=== PATIENT | male | born 1950 | race Caucasian/White ===

== ENCOUNTER 2018-08-07 18:55 | Emergency (ER) | payer SELFPAY ==
[2018-08-07] MEDS ORDERED: Sodium Chloride 0.9% 10 ML Syringe FLUSH PRN (19:04)
--- NOTE | 2018-08-07 19:04 | EDM.PDOC ---
ED HPI GENERAL MEDICAL PROBLEM - General Chief Complaint: General Stated Complaint: N/V/D, heat expousre Time Seen by Provider: 08/07/18 18:55 Source of Information: Reports: Patient, Family (, sonmaggy), Old Records ( [facility] chart/EMR) History Limitations: Reports: No Limitations - History of Present Illness INITIAL COMMENTS - FREE TEXT/NARRATIVE: Patient was brought to the emergency room via private automobile by his son and for evaluation of probable dehydration secondary to possible food poisoning and heat exposure earlier today. The patient woke up at 4 AM this morning with some nausea and watery diarrhea with 5-6 bowel movements earlier today and about 6 episodes of emesis. Last episode of emesis at about 15:00 hours this afternoon. The patient did eat some sausage at midnight this past evening, however no other known exposure to infection. The patient was also working out in the sun all day and significant humidity, including changing a tire. He has had some nonspecific diffuse arthralgias, which she rates at 4/10. Patient did take two 325 mg tablets of aspirin earlier this morning. The patient denies any chest pain/pressure, heart flutter, dizziness, orthostasis, orthopnea, diaphoresis, paresthesias, recent decreased exercise tolerance, or any other anginal-type symptoms. No recent history of abdominal pain, heartburn , hematemesis, melena, gross hematochezia, or any food intolerance, including fatty foods, etc.. He denies any gross hematuria, colic, or other UTI symptoms. The patient also denies any recent fever, cough, wheezing, dyspnea, etc.. No history of recent headaches, visual changes, diplopia, change in mental status, or other change in neurological status, however some possible borderline confusion until after he got out of the sun. He denies any nausea this time. Onset: Today, Gradual Onset Date: 08/07/18 Onset Time: 04:00 Duration: Getting Worse Location: Reports: Generalized Quality: Reports: Ache Severity: Mild Improves with: Reports: None Worsens with: Reports: None Context: Reports: Other (As above). Denies: Sick Contact, Trauma Associated Symptoms: Reports: Confusion, Nausea/Vomiting, Weakness (Secondary to dehydration). 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: Aspirin Generalized Pain Score (Numeric/FACES): 4 - Related Data Allergies Allergy/AdvReac Type Severity Reaction Status Date / Time lisinopril Allergy Cannot Verified 08/07/18 19:35 Remember Home Meds: Home Meds Aspirin 650 mg PO TID PRN 08/07/18 [History] Fish Oil/[place]-3 Fatty Acids [Fish Oil 1,000 MG] 1 each PO DAILY 08/07/18 [ History] Flaxseed Oil [Flaxseed] 1,000 mg PO DAILY 08/07/18 [History] Magnesium 250 mg PO DAILY 08/07/18 [History] Valsartan/Hydrochlorothiazide [Diovan Hct 160-25 mg Tablet] 0.5 each PO DAILY [History] Past Medical History HEENT History: Reports: Hard of Hearing, Impaired Vision, Other (See Below). Denies: Allergic Rhinitis, Cataract, Glaucoma, Macular Degeneration, Retinal Detachment Other HEENT History: reading glasses. Presbycusis with no current therapy. Cardiovascular History: Reports: Hypertension. Denies: Afib, Aneurysm, Arrhythmia, Blood Clots/VTE/DVT, CAD, Cardiomyopathy, Heart Failure, Heart Murmur, High Cholesterol, [place], PVD, Syncope Respiratory History: Denies: Asthma, Bronchitis, Recurrent, COPD, Intubation, Difficult, Intubation, Previous, PE, Pneumothorax, Sleep Apnea, TB Gastrointestinal History: Reports: None. Denies: Bowel Obstruction, Celiac Disease, Cholelithiasis, Chronic Constipation, Chronic Diarrhea, Colon Polyp, Fecal Incontinence, GERD, GI Bleed, Hepatitis, Hiatal Hernia, Inflammatory Bowel Disease, Irritable Bowel Syndrome, Jaundice, Pancreatitis Genitourinary History: Reports: BPH, Other (See Below). Denies: Acute Renal Failure, Chronic Renal Insuffiency, Renal Calculus, STD, Urinary Incontinence, UTI, Recurrent Other Genitourinary History: Erectile dysfunction. Musculoskeletal History: Reports: Arthritis, Back Pain, Chronic, Neck Pain, Chronic, Osteoarthritis. Denies: Amputation, Fracture, Gout, Osteoporosis, RA, SLE Neurological History: Reports: None. Denies: Cerebral Aneurysms, Concussion, CVA, Headaches, Chronic, Head Trauma, Migraines, MS, Neuropathy, Peripheral, Parkinson's, Seizure, TIA, Vertigo Psychiatric History: Reports: None. Denies: Abuse, Victim of, ADD, ADHD, Addiction, Anxiety, Depression, Psych Hospitalization(s), PTSD, Suicide Attempt , Suicidal Ideation Endocrine/Metabolic History: Reports: Obesity/BMI 30+. Denies: Diabetes, Type I , Diabetes, Type II, Diabetes Mellitus, Type 3c, Hypothyroidism, IDDM Hematologic History: Reports: None. Denies: Anemia, Blood Transfusion(s), Iron Deficiency Immunologic History: Reports: None. Denies: AIDS, HIV, SLE Oncologic (Cancer) History: Reports: None. Denies: Basal Cell Carcinoma, Colon , Hodgkin's Lymphoma, Leukemia, Lymphoma, Malignant Melanoma, Non-Hodgkin's Lymphoma, Prostate, Squamous Cell Carcinoma Dermatologic History: Reports: None. Denies: Eczema, Psoriasis - Infectious Disease History Infectious Disease History: Reports: Chicken Pox, Measles, Mumps. Denies: C- Difficile, Meningitis, Mononucleosis, MRSA, Pertussis (Whooping Cough), Rheumatic Fever, Rubella, Scarlet Fever, Shingles, TB, VRE - Past Surgical History Head Surgeries/Procedures: Reports: None HEENT Surgical History: Reports: Oral Surgery, Other (See Below). Denies: Adenoidectomy, Cataract Surgery, Eye Surgery, Laser Surgery, LASIK, Myringotomy w Tube(s), Naso-Sinus Surgery, Tonsillectomy Other HEENT Surgeries/Procedures: multiple teeth extractions. Cardiovascular Surgical History: Reports: None. Denies: Varicose Respiratory Surgical History: Reports: None. Denies: Thoracentesis GI Surgical History: Denies: Appendectomy, Cholecystectomy, Colonoscopy, EGD, Hernia, Abdominal, Hernia, Inguinal, Hernia Repair/Other, Polypectomy Male Surgical History: Reports: Circumcision, Other (See Below). Denies: TURP-Transurethral Resection of Prostate, Vasectomy Other Male Surgeries/Procedures: circumcision as an . Endocrine Surgical History: Reports: None. Denies: Thyroid Biopsy Neurological Surgical History: Reports: C-Spine, Other (See Below). Denies: Discectomy, Laminectomy, Lumbar Spine, Spinal Fusion, Thoracic Spine, Vertebroplasty Other Neurological Surgeries/Procedures: Multiple cervical nerve branch blocks and RFA in 2006. Musculoskeletal Surgical History: Reports: None. Denies: Carpal Tunnel, Ganglion Cyst, Joint Replacement, ORIF, Shoulder Surgery Oncologic Surgical History: Reports: None Dermatological Surgical History: Reports: None Social & Family History - Tobacco Use Smoking Status *Q: Never Smoker Tobacco Use Within Last Twelve Months: No Years of Tobacco use: 0 Used Tobacco, but Quit: No Smoking Cessation Information Provided To Patient: Yes Second Hand Smoke Exposure: Yes Source of Second Hand Smoke Exposure: smokes. Second Hand Smoke Education Provided: Yes - Caffeine Use Caffeine Use: Reports: Coffee (2 cups per day), Soda (1 soda per month), Tea ( occasional ice tea). Denies: Energy Drinks - Alcohol Use Alcohol Use History: Yes Days Per Week of Alcohol Use: 2 Number of Drinks Per Day: 1 Number of Drinks Per Day Comment: usually beer. No previous DWIs, problems with alcohol abuse, etc. Total Drinks Per Week: 2 Alcohol Use in Last Twelve Months: Yes - Recreational Drug Use Recreational Drug Use: No Drug Use in Last 12 Months: No Recreational Drug Type: Denies: Amphetamines (Speed), Heroin, Inhalants (Glues, Solvents, Aerosols), Ketamines, LSD (Acid), Marijuana/Hashish, Methamphetamine, Morphine, Oxycodone - Living Situation & Occupation Living situation: Reports: (second ), (first 2002. 3 children) Occupation: Employed ([employer]) ED ROS GENERAL - Review of Systems Review Of Systems: ROS reveals no pertinent complaints other than HPI. ED EXAM, GENERAL - Physical Exam Exam: See Below Exam Limited By: No Limitations General Appearance: Alert, WD/WN, No Apparent Distress Eye Exam: Bilateral Eye: EOMI, Normal Fundi, Normal Inspection (no nystagmus. Patient not wearing glasses.), PERRL Ears: Normal External Exam, Normal Canal, Normal TMs, Hearing Loss (mild bilateral presbycusis). No: Hearing Grossly Normal Nose: Normal Inspection, Normal Mucosa, No Blood Throat/Mouth: Normal Lips, Normal Teeth, Normal Gums, Normal Oropharynx, Normal Voice, No Airway Compromise, Other (mild dry oral mucosa). No: Dysphagia, Perioral Cyanosis Course - Vital Signs Last Recorded V/S: Last Vital Signs Temp 37.7 C 08/07/18 21:48 Pulse 79 08/07/18 21:30 Resp 15 08/07/18 21:30 BP 128/67 08/07/18 21:30 Pulse Ox 95 08/07/18 21:30 Vital Signs - 24 hr 08/07/18 08/07/18 08/07/18 18:55 19:10 20:01 Temperature [ 37.7 C Oral] Pulse, 97 86 78 Peripheral [ Pulse Oximetry] Respiratory 20 18 17 Rate Blood Pressure 145/72 H 131/69 135/61 [Left Upper Arm ] O2 Sat by Pulse 97 98 97 Oximetry 08/07/18 08/07/18 08/07/18 20:29 20:30 21:00 Temperature [ 37.8 C Oral] Pulse, 76 75 Peripheral [ Pulse Oximetry] Respiratory 17 15 Rate Blood Pressure 138/68 137/68 [Left Upper Arm ] O2 Sat by Pulse 99 99 Oximetry 08/07/18 08/07/18 21:30 21:48 Temperature [ 37.7 C Oral] Pulse, 79 Peripheral [ Pulse Oximetry] Respiratory 15 Rate Blood Pressure 128/67 [Left Upper Arm ] O2 Sat by Pulse 95 Oximetry - Orders/Labs/Meds Orders: Active Orders 24 hr Category Date Time Status Cardiac Monitoring [RC] . DIRECTED Care 08/07/18 19:07 Active Peripheral IV Care [RC] . DIRECTED Care 08/07/18 19:04 Active Nothing Per Oral Diet [DIET] Diet 08/07/18 Breakfast Active Abdomen Series w Chest 1V [CR] Stat Exams 08/07/18 19:04 Taken CULTURE BLOOD [BC] Stat Lab 08/07/18 19:20 Received CULTURE BLOOD [BC] Stat Lab 08/07/18 19:40 Received Sodium Chloride 0.9% [Saline Flush] Med 08/07/18 19:04 Active 10 ml FLUSH ASDIRECTED PRN Blood Culture x2 Reflex Set [OM.PC] Urgent Oth 08/07/18 19:04 Ordered Obtain Past Medical Record [OM.PC] Urgent Oth 08/07/18 19:04 Active Peripheral IV Insertion Adult [OM.PC] Stat Oth 08/07/18 19:04 Ordered Resuscitation Status Stat Resus Stat 08/07/18 19:04 Ordered Medication Orders Sodium Chloride (Saline Flush) 10 ml FLUSH ASDIRECTED PRN PRN Reason: Keep Vein Open Labs: Laboratory Tests 08/07/18 08/07/18 08/07/18 Range/Units 19:20 19:20 19:20 WBC 13.3 H (4.0-10.2) K/uL RBC 4.45 (4.33-5.41) M/uL Hgb 13.3 (13.1-16.8) g/dL Hct 38.6 L (39.0-49.0) % MCV 86.7 (84.0-98.0) fL MCH 29.9 (28.2-33.3) pg MCHC 34.5 (31.7-36.0) g/dL RDW 13.0 (11.2-14.1) % Plt Count 239 (150-350) K/uL Neut % (Auto) 88.3 H (45.0-80.0) % Lymph % (Auto) 6.1 L (10.0-50.0) % [place] % (Auto) 5.2 (2.0-14.0) % Eos % (Auto) 0.2 (0.0-5.0) % Baso % (Auto) 0.2 (0.0-2.0) % Neut # (Auto) 11.76 H (1.40-7.00) K/uL Lymph # (Auto) 0.81 (0.50-3.50) K/uL [place] # (Auto) 0.69 (0.00-1.00) K/uL Eos # (Auto) 0.03 (0.00-0.50) K/uL Baso # (Auto) 0.03 (0.00-0.20) K/uL PT 11.1 (9.5-12.0) SEC INR 1.0 APTT 27.7 (21.0-31.3) SEC Sodium (136-145) mmol/L Potassium (3.5-5.1) mmol/L Chloride (98-107) mmol/L Carbon Dioxide (21.0-32.0) mmol/L BUN (7-18) mg/dL Creatinine (0.51-1.17) mg/dL Est Cr Clr Drug Dosing mL/min Estimated GFR (MDRD) mL/min Glucose (74-106) mg/dL Lactic Acid (0.4-2.0) mmol/L Uric Acid (2.6-7.2) mg/dL Calcium (8.5-10.1) mg/dL Magnesium (1.8-2.4) mg/dL Total Bilirubin (0.2-1.0) mg/dL AST (15-37) U/L ALT (12-78) U/L Alkaline Phosphatase (46-116) IU/L Total Protein (6.4-8.2) g/dL Albumin (3.4-5.0) g/dL Amylase 34 (25-115) U/L Lipase (73-393) U/L 08/07/18 08/07/18 Range/Units 19:20 19:20 WBC (4.0-10.2) K/uL RBC (4.33-5.41) M/uL Hgb (13.1-16.8) g/dL Hct (39.0-49.0) % MCV (84.0-98.0) fL MCH (28.2-33.3) pg MCHC (31.7-36.0) g/dL RDW (11.2-14.1) % Plt Count (150-350) K/uL Neut % (Auto) (45.0-80.0) % Lymph % (Auto) (10.0-50.0) % [place] % (Auto) (2.0-14.0) % Eos % (Auto) (0.0-5.0) % Baso % (Auto) (0.0-2.0) % Neut # (Auto) (1.40-7.00) K/uL Lymph # (Auto) (0.50-3.50) K/uL [place] # (Auto) (0.00-1.00) K/uL Eos # (Auto) (0.00-0.50) K/uL Baso # (Auto) (0.00-0.20) K/uL PT (9.5-12.0) SEC INR APTT (21.0-31.3) SEC Sodium 135 L (136-145) mmol/L Potassium 3.4 L (3.5-5.1) mmol/L Chloride 100 (98-107) mmol/L Carbon Dioxide 23.1 (21.0-32.0) mmol/L BUN 19 H (7-18) mg/dL Creatinine 0.85 (0.51-1.17) mg/dL Est Cr Clr Drug Dosing 94.00 mL/min Estimated GFR (MDRD) > 60 mL/min Glucose 115 H (74-106) mg/dL Lactic Acid 1.0 (0.4-2.0) mmol/L Uric Acid 6.4 (2.6-7.2) mg/dL Calcium 8.4 L (8.5-10.1) mg/dL Magnesium 1.8 (1.8-2.4) mg/dL Total Bilirubin 1.2 H (0.2-1.0) mg/dL AST 17 (15-37) U/L ALT 28 (12-78) U/L Alkaline Phosphatase 100 (46-116) IU/L Total Protein 6.8 (6.4-8.2) g/dL Albumin 3.5 (3.4-5.0) g/dL Amylase (25-115) U/L Lipase 71 L (73-393) U/L Blood Cultures 2 were also collected. Meds: Medications Generic Name Dose Route Start Last Admin Trade Name Freq PRN Reason Stop Dose Admin Sodium Chloride 10 ml 08/07/18 19:04 Saline Flush FLUSH ASDIRECTED PRN Keep Vein Open Discontinued Medications Generic Name Dose Route Start Last Admin Trade Name Freq PRN Reason Stop Dose Admin Acetaminophen 650 mg 08/07/18 20:35 08/07/18 20:42 Tylenol PO 08/07/18 20:36 650 mg NOW STA Administration Lactated Ringer's 1,000 mls @ 999 mls/hr 08/07/18 19:04 08/07/18 19:32 Ringers, Lactated IV 08/07/18 20:04 999 mls/hr .BOLUS ONE Administration Lactated Ringer's 1,000 mls @ 999 mls/hr 08/07/18 20:36 08/07/18 20:42 Ringers, Lactated IV 08/07/18 21:36 999 mls/hr .BOLUS ONE Administration - Radiology Interpretation Free Text/Narrative:: Ssis Developer showed normal sinus rhythm with heart rates in the 70s to 80s with no ectopy or arrhythmia. Acute Abdominal x-rays show evidence of possible pulmonary obstructive disease with no cardiomegaly, CHF, pulmonary infiltrates, free air, ileus, or obstruction. Mild nonspecific increased bowel gaseous pattern with only very occasional fluid levels. Departure - Departure Time of Disposition: 22:00 Disposition: Home, Self-Care 01 Condition: Good Clinical Impression: Gastroenteritis, Dehydration, Tobacco abuse counseling Osteoarthritis Qualifiers: Osteoarthritis location: multiple joints Osteoarthritis type: primary Qualified Code(s): M15.0 - Primary generalized (osteo)arthritis Hypertension Qualifiers: Hypertension type: essential hypertension Qualified Code(s): I10 - Essential ( primary) hypertension - Discharge Information *PRESCRIPTION DRUG MONITORING PROGRAM REVIEWED*: Not Applicable *COPY OF PRESCRIPTION DRUG MONITORING REPORT IN PATIENT AVIVA: Not Applicable Instructions: Dehydration, Adult, [id number] Referrals: Derrick Elizalde MD [Ordering Only Provider] - Forms: ED Department Discharge Care Plan Goals: 1. Follow up with your regular provider in 5-7 days for reevaluation and recommended repeat CBC and comprehensive metabolic panel. Bring these discharge instructions with you to that visit.. 2. Tylenol 650 mg by mouth every 4 hours and/or OTC ibuprofen 2-3 tabs by mouth every 6 hours with food as directed./needed. You may stagger these medications for 48-72 hours only, which essentially means that you are receiving a pain medication about every 2 hours. 3. [place] diet including encouragement of oral fluids such as sports drinks, etc. for 24-48 hours as directed. Advance to regular diet as tolerated thereafter. 4. Stop all tobacco exposure EMILIE as directed with counselling, information, etc. given 5. Consider yearly influenza boosters, updated ibuprofen health care, screening colonoscopy, etc. as discussed. 6. Immediately after this visit verify that your cellular telephone's voicemail has been activated and is empty. Also verify that your home telephone 's answering machine is operating properly and has space to receive messages. Note that it is sometimes necessary for us to be able to contact you at a later date to discuss your medical care. 7. Please remember that we are ALWAYS here for you and want to answer any questions you may have. Feel free to call the hospital any time and we call you back EMILIE. - Problem List & Annotations (1) Dehydration SNOMED Code(s): 18357703 Code(s): E86.0 - DEHYDRATION Status: Acute Priority: High Current Visit : No Onset Date: 08/07/18 Annotation/Comment:: Likely heat exposure and secondary dehydration with aggressive IV hydration the emergency room in improved symptoms prior to discharge. Symptomatic relief as per discharge instructions. Note mild leukocytosis with additional fever, which will be observed for the time being. No direct indication for antibiotics at this time. Close follow-up by his regular provider. In addition, note mild hyperbilirubinemia, hypokalemia and hyponatremia with IV lactated Ringer's given as above. (2) Gastroenteritis SNOMED Code(s): 71355773 Code(s): K52.9 - NONINFECTIVE GASTROENTERITIS AND COLITIS, UNSPECIFIED Status: Acute Priority: High Current Visit: No Onset Date: 08/07/18 Annotation/Comment:: Questionable food poisoning versus beginning viral gastritis. Symptomatic relief as per discharge instructions. No nausea or abdominal pain at this time. (3) Hypertension SNOMED Code(s): 17645468 Code(s): I10 - ESSENTIAL (PRIMARY) HYPERTENSION Status: Chronic Priority : Medium Current Visit: No Annotation/Comment:: Stable by patient history patient with the patient taking only one third rather than 1/2 tab of his blood pressure medication. He also is not interested in preventative healthcare, although this was encouraged as per discharge instructions. Qualifiers: Hypertension type: essential hypertension Qualified Code(s): I10 - Essential (primary) hypertension (4) Osteoarthritis SNOMED Code(s): 767400892 Code(s): M19.90 - UNSPECIFIED OSTEOARTHRITIS, UNSPECIFIED SITE Status: Chronic Priority: Medium Current Visit: No Annotation/Comment:: Stable by history other than current nonspecific arthralgias secondary to his dehydration , etc. as above. Qualifiers: Osteoarthritis location: multiple joints Osteoarthritis type: primary Qualified Code(s): M15.0 - Primary generalized (osteo)arthritis (5) Tobacco abuse counseling SNOMED Code(s): 794580061, 083848928, [id number] Code(s): Z71.6 - TOBACCO ABUSE COUNSELING Status: Chronic Priority: Medium Current Visit: No Annotation/Comment:: Tobacco cessation information provided for his . - Problem List Review Problem List Initiated/Reviewed/Updated: Yes - My Orders Last 24 Hours: My Active Orders 08/07/18 19:04 Peripheral IV Care [RC] . DIRECTED Abdomen Series w Chest 1V [CR] Stat Sodium Chloride 0.9% [Saline Flush] 10 ml FLUSH ASDIRECTED PRN Blood Culture x2 Reflex Set [OM.PC] Urgent Obtain Past Medical Record [OM.PC] Urgent Peripheral IV Insertion Adult [OM.PC] Stat Resuscitation Status Stat 08/07/18 19:07 Cardiac Monitoring [RC] . DIRECTED 08/07/18 19:20 CULTURE BLOOD [BC] Stat 08/07/18 19:40 CULTURE BLOOD [BC] Stat 08/07/18 Breakfast Nothing Per Oral Diet [DIET] - Assessment/Plan Last 24 Hours: My Active Orders 08/07/18 19:04 Peripheral IV Care [RC] . DIRECTED Abdomen Series w Chest 1V [CR] Stat Sodium Chloride 0.9% [Saline Flush] 10 ml FLUSH ASDIRECTED PRN Blood Culture x2 Reflex Set [OM.PC] Urgent Obtain Past Medical Record [OM.PC] Urgent Peripheral IV Insertion Adult [OM.PC] Stat Resuscitation Status Stat 08/07/18 19:07 Cardiac Monitoring [RC] . DIRECTED 08/07/18 19:20 CULTURE BLOOD [BC] Stat 08/07/18 19:40 CULTURE BLOOD [BC] Stat 08/07/18 Breakfast Nothing Per Oral Diet [DIET] Assessment:: As above Plan: As above. Extensive precautions were given to the patient and his family, who are in agreement with the treatment plan. See Patient Instructions for further treatment and plan.
[2018-08-07] MEDS: Lactated Ringers 1,000 ML IV ONE ×2 (19:32→20:42)
[2018-08-07 19:41] LABS: CHLORIDE,CL 100 mmol/L (98-107); SODIUM,NA 135 mmol/L (136-145)
[2018-08-07] MEDS: Acetaminophen 325 MG Tab PO STA (20:42)
[2018-08-07 21:50] VITALS: BP 128/67
== END 2018-08-07 21:55 | disposition home or self-care (01) ==
LOC: LL.ED 18:55 → SUPCPDRO 18:55 → LL.ED 21:55
DX: K52.9 Noninfective gastroenteritis and colitis, unspecified (principal); E86.0 Dehydration; I10 Essential (primary) hypertension; M15.0 Primary generalized (osteo)arthritis; Z71.6 Tobacco abuse counseling; Z77.22 Contact with and (suspected) exposure to environmental tobacco smoke (acute) (chronic); E66.9 Obesity, unspecified; Z88.8 Allergy status to other drugs, medicaments and biological substances; Z79.82 Long term (current) use of aspirin; Z79.899 Other long term (current) drug therapy; Z68.31 Body mass index [BMI] 31.0-31.9, adult
CPT/HCPCS: 36415; 74022; 80053; 82150; 83605; 83690; 83735; 84550; 85025; 85610; 85730; 87040; 96360; 96361; 99284-25; A9270-GY; J7120

== ENCOUNTER 2020-11-06 12:28 | Emergency (ER) | payer MEDICARE ==
[2020-11-06] MEDS ORDERED: EPINEPHrine 1 MG/1 ML Amp IM ONE (12:34)
[2020-11-06] MEDS ORDERED: methylPREDNISolone Sodium Succinate 125 MG/2 ML SDV IM ONE (12:34)
[2020-11-06] MEDS ORDERED: Famotidine 20 MG Tab PO ONE (12:34)
[2020-11-06] MEDS ORDERED: EPINEPHrine 1 MG/1 ML Amp ONE (12:35)
[2020-11-06] MEDS ORDERED: predniSONE 20 MG Tab PO ONE (13:04)
--- NOTE | 2020-11-06 13:37 | EDM.PDOC ---
ED HPI GENERAL MEDICAL PROBLEM - General Chief Complaint: Allergic Reaction Stated Complaint: allergic reaction Time Seen by Provider: 11/06/20 12:58 Source of Information: Reports: Patient History Limitations: Reports: No Limitations - History of Present Illness INITIAL COMMENTS - FREE TEXT/NARRATIVE: Pt. presents to ER with complaints of allergic reaction due to bee sting. He states that he was stung [place] He states that he is not sure if the insect was a bee, hornet, or wasp. Pt. states that he has never had a reaction to a bee sting in the past. He states that when the incident happened, he has some chest and throat tightness. He states that he took benadryl 50mg PO about an hour before getting to ER and reports that he is feeling somewhat better. Pt. denies any current shortness of breath, lightheadedness, chest pain, nausea, vomiting, fever, chills. His only complaint at this time is that of itchy rash. Onset: Today - Related Data Allergies Allergy/AdvReac Type Severity Reaction Status Date / Time lisinopril Allergy Cannot Verified 11/06/20 12:32 Remember Home Meds: Home Meds Aspirin 650 mg PO TID PRN 08/07/18 [History] Fish Oil/[place]-3 Fatty Acids [Fish Oil 1,000 MG] 1 each PO DAILY 08/07/18 [History] Flaxseed Oil [Flaxseed] 1,000 mg PO DAILY 08/07/18 [History] Magnesium 250 mg PO DAILY 08/07/18 [History] Valsartan/Hydrochlorothiazide [Diovan Hct 160-25 mg Tablet] 0.5 each PO DAILY 08/07/18 [History] Past Medical History HEENT History: Reports: Hard of Hearing, Impaired Vision, Other (See Below). Denies: Allergic Rhinitis, Cataract, Glaucoma, Macular Degeneration, Retinal Detachment Other HEENT History: reading glasses. Presbycusis with no current therapy. Cardiovascular History: Reports: Hypertension. Denies: Afib, Aneurysm, Arrhythmia, Blood Clots/VTE/DVT, CAD, Cardiomyopathy, Heart Failure, Heart Murmur, High Cholesterol, [place], PVD, Syncope Gastrointestinal History: Reports: None. Denies: Bowel Obstruction, Celiac Disease, Cholelithiasis, Chronic Constipation, Chronic Diarrhea, Colon Polyp, Fecal Incontinence, GERD, GI Bleed, Hepatitis, Hiatal Hernia, Inflammatory Bowel Disease, Irritable Bowel Syndrome, Jaundice, Pancreatitis Genitourinary History: Reports: BPH, Other (See Below). Denies: Acute Renal Failure, Chronic Renal Insuffiency, Renal Calculus, STD, Urinary Incontinence, UTI, Recurrent Other Genitourinary History: Erectile dysfunction. Musculoskeletal History: Reports: Arthritis, Back Pain, Chronic, Neck Pain, Chronic, Osteoarthritis. Denies: Amputation, Fracture, Gout, Osteoporosis, RA, SLE Neurological History: Reports: None. Denies: Cerebral Aneurysms, Concussion, CVA, Headaches, Chronic, Head Trauma, Migraines, MS, Neuropathy, Peripheral, Parkinson's, Seizure, TIA, Vertigo Psychiatric History: Reports: None. Denies: Abuse, Victim of, ADD, ADHD, Addiction, Anxiety, Depression, Psych Hospitalization(s), PTSD, Suicide Attempt, Suicidal Ideation Endocrine/Metabolic History: Reports: Obesity/BMI 30+. Denies: Diabetes, Type I, Diabetes, Type II, Diabetes Mellitus, Type 3c, Hypothyroidism, IDDM Hematologic History: Reports: None. Denies: Anemia, Blood Transfusion(s), Iron Deficiency Immunologic History: Reports: None. Denies: AIDS, HIV, SLE Oncologic (Cancer) History: Reports: None. Denies: Basal Cell Carcinoma, Colon, Hodgkin's Lymphoma, Leukemia, Lymphoma, Malignant Melanoma, Non-Hodgkin's Lymphoma, Prostate, Squamous Cell Carcinoma Dermatologic History: Reports: None. Denies: Eczema, Psoriasis - Infectious Disease History Infectious Disease History: Reports: Chicken Pox, Measles, Mumps. Denies: C- Difficile, Meningitis, Mononucleosis, MRSA, Pertussis (Whooping Cough), Rheumatic Fever, Rubella, Scarlet Fever, Shingles, TB, VRE - Past Surgical History HEENT Surgical History: Reports: Other (See Below), Oral Surgery Social & Family History - Caffeine Use Caffeine Use: Reports: Coffee (2 cups per day), Soda (1 soda per month), Tea (o ccasional ice tea). Denies: Energy Drinks - Living Situation & Occupation Living situation: Reports: , Occupation: Employed ([employer]) ED ROS ALLERGIC REACTION - Review of Systems Review Of Systems: Comprehensive ROS is negative, except as noted in HPI. ED EXAM GENERAL NO PERIP PULSE - Physical Exam Exam: See Below Exam Limited By: No Limitations General Appearance: Alert, WD/WN, No Apparent Distress Throat/Mouth: Normal Inspection, Normal Lips, Normal Teeth, Normal Gums, Normal Oropharynx, Normal Voice, No Airway Compromise Head: Atraumatic, Normocephalic Neck: Normal Inspection, Supple, Non-Tender, Full Range of Motion Respiratory/Chest: No Respiratory Distress, Lungs Clear, Normal Breath Sounds, No Accessory Muscle Use, Chest Non-Tender Cardiovascular: Normal Peripheral Pulses, Regular Rate, Rhythm, No Edema, No Gallop, No JVD, No Murmur, No Rub Skin Exam: Erythema, Rash Lymphatic: No Adenopathy Course - Vital Signs Last Recorded V/S: Last Vital Signs Temp 36.6 C 11/06/20 12:30 Pulse 68 11/06/20 12:58 Resp 18 11/06/20 12:58 BP 130/66 11/06/20 12:58 Pulse Ox 97 11/06/20 12:58 - Orders/Labs/Meds Meds: Medications Discontinued Medications Generic Name Dose Route Start Last Admin Trade Name Song PRN Reason Stop Dose Admin Epinephrine HCl 0.3 mg 11/06/20 12:34 11/06/20 12:36 Epinephrine 1 Mg/1 Ml Amp IM 11/06/20 12:35 0.3 mg ONETIME ONE Administration Epinephrine HCl Confirm 11/06/20 12:35 11/06/20 12:54 Epinephrine 1 Mg/1 Ml Amp Administered 11/06/20 12:36 Not Given Dose 1 mg .ROUTE .STK-MED ONE Famotidine 20 mg 11/06/20 12:34 11/06/20 12:52 Famotidine 20 Mg Tab PO 11/06/20 12:35 20 mg ONETIME ONE Administration Methylprednisolone Sodium Succinate 125 mg 11/06/20 12:34 11/06/20 12:43 Methylprednisolone Sodium Succinate 125 Mg/2 Ml Sdv IM 11/06/20 12:35 125 mg ONETIME ONE Administration Prednisone 40 mg 11/06/20 13:04 11/06/20 13:10 Prednisone 20 Mg Tab PO 11/06/20 13:05 40 mg ONETIME ONE Administration Departure - Departure Time of Disposition: 13:45 Disposition: Home, Self-Care 01 Clinical Impression: Allergic reaction - Discharge Information Instructions: Allergies, Adult, [id number], Prednisone tablets Referrals: Madi Arellano PA-C [Primary Care Provider] - Forms: ED Department Discharge Additional Instructions: Home to rest. prednisone 10mg 4 tabs daily for 7 days total starting tomorrow Benadryl 25mg 2 tabs every 4-6 hours as needed for continued itching Return to ER if you notice any trouble breathing, swallowing, or throat tightness - Problem List Review Problem List Initiated/Reviewed/Updated: Yes - Assessment/Plan Plan: Home to rest. prednisone 10mg 4 tabs daily for 7 days total starting tomorrow Benadryl 25mg 2 tabs every 4-6 hours as needed for continued itching Return to ER if you notice any trouble breathing, swallowing, or throat tightness
== END 2020-11-06 13:20 | disposition home or self-care (01) ==
LOC: LL.ED 12:28
DX: T63.441A Toxic effect of venom of bees, accidental (unintentional), initial encounter (principal); I10 Essential (primary) hypertension; Z88.8 Allergy status to other drugs, medicaments and biological substances; Z79.899 Other long term (current) drug therapy
CPT/HCPCS: 99283; A9270; J0171; J2930; J7512

== ENCOUNTER 2021-09-17 20:10 | Emergency (ER) | payer MEDICARE ==
[2021-09-17] MEDS ORDERED: Lidocaine 1% 5 ML VIAL INJECT ONE (20:17)
[2021-09-17] MEDS ORDERED: Bacitracin/Neomycin/Polymyxin B Oint 0.9 GM U/D Packet TOP ONE (20:50)
== END 2021-09-17 21:10 | disposition home or self-care (01) ==
LOC: LL.ED 20:10
DX: S61.411A Laceration without foreign body of right hand, initial encounter (principal); I10 Essential (primary) hypertension; E66.9 Obesity, unspecified; Z68.30 Body mass index [BMI] 30.0-30.9, adult; Z88.8 Allergy status to other drugs, medicaments and biological substances; Z79.899 Other long term (current) drug therapy; Z79.82 Long term (current) use of aspirin; W26.8XXA Contact with other sharp object(s), not elsewhere classified, initial encounter
CPT/HCPCS: 12002; 99282; 99283

== ENCOUNTER 2022-09-22 23:24 | Emergency (ER) | payer MEDICARE ==
[2022-09-22 23:40] LABS: APPEARANCE,URINE SLIGHTLY CLOUDY; BILIRUBIN,URINE NEGATIVE (NEGATIVE); COLOR,URINE YELLOW; GLUCOSE,URINE NEGATIVE (NEGATIVE); KETONES,URINE TRACE mg/dL (NEGATIVE); LEUKOCYTE ESTERASE,URINE NEGATIVE (NEGATIVE); NITRITE,URINE NEGATIVE (NEGATIVE); OCCULT BLOOD,URINE LARGE (NEGATIVE); PH,URINE 5.5 (5.0-9.0); PROTEIN,URINE 30 mg/dL (NEGATIVE); UROBILINOGEN,URINE 0.2 E.U./dL (0.2-1.0)
[2022-09-22] MEDS ORDERED: HYDROmorphone 0.5 MG/0.5 ML Syringe IVPUSH PRN (23:46)
[2022-09-22] MEDS ORDERED: Sodium Chloride 0.9% 1,000 ML IV ONE (23:46)
[2022-09-22] MEDS ORDERED: Ondansetron 4 MG/2 ML SDV IVPUSH PRN (23:46)
[2022-09-22 23:49] LABS: BACTERIA,URINE NOT SEEN /HPF (NONE TO FEW); EPITHELIAL CELLS,URINE FEW /LPF; MUCUS,URINE FEW /LPF (NEGATIVE); RBC,URINE >100 /HPF
[2022-09-23] MEDS ORDERED: Tamsulosin 0.4 MG Cap.ER PO ONE (00:14)
[2022-09-23] MEDS ORDERED: Ketorolac 30 MG/ML SDV IVPUSH ONE (00:33)
[2022-09-23] MEDS ORDERED: Take Home: Acetaminophen/HYDROcodone 325-10 MG, 5 Tab Pack PO ONE (01:26)
[2022-09-23] MEDS ORDERED: Take Home: Tamsulosin HCl 0.4 MG, 6 Cap Pack PO ONE (01:27)
[2022-09-26] MEDS ORDERED: Sodium Chloride 0.9% 10 ML Syringe FLUSH PRN (20:43)
== END 2022-09-23 02:00 | disposition home or self-care (01) ==
LOC: LL.ED 23:24
DX: N20.2 Calculus of kidney with calculus of ureter (principal); I10 Essential (primary) hypertension; E66.9 Obesity, unspecified; Z88.8 Allergy status to other drugs, medicaments and biological substances
CPT/HCPCS: 74176; 81001; 96361; 96374; 96375; 99284; 99284-25; A9270-GY; J1170; J1885; J2405; J7030